=== PATIENT | male | born 1995 | race Caucasian/White ===

== ENCOUNTER 2021-11-10 18:33 | Emergency (ER) | payer OTHER, SELFPAY ==
[2021-11-10 19:19] VITALS: BP 149/85; PULSE 77; RESP 16; TEMP 36.8; O2SAT 98; BMI 29.2
--- NOTE | 2021-11-10 20:11 | W.ED.DENTAL ---
HPI - Dental/Oral General: Chief complaint: Dental/Oral Stated complaint: Blister in mouth Time Seen by Provider: 11/10/21 20:10 History of Present Illness: Patient comes in today with complaints of swelling to the upper palate. Patient reports noticing it yesterday which has grown more today. Patient has tenderness to the teeth. Patient appears nontoxic. Patient appears in mild pain. MD Complaint: tooth pain Onset (ago): day(s) Associated symptoms: Denies fever(s) Review of Systems General: Reports: 10 or more systems reviewed and unremarkable except in HPI and below Const: Denies: fever(s) ENMT: Reports: other (Mouth pain) Card: Denies: chest pain Resp: Denies: dyspnea Musc: Reports: neck pain Neuro: Denies: headache(s) Physical Exam Const: COMMON NORMALS: alert HENMT: TEETH & GINGIVA: Yes gingiva abnormal diffusely erythematous, tender, receding and discolored Neck/C-Spine: COMMON NORMALS: full ROM Resp: COMMON NORMALS: normal respiratory effort and clear to auscultation bilaterally AUSCULTATION: clear to auscultation bilaterally Cardio: COMMON NORMALS: regular rate and regular rhythm RATE: regular rate RHYTHM: regular rhythm Extremity: COMMON NORMALS: full ROM Neuro: SENSORIUM/ORIENTATION: Yes alert Course Vital Signs: Vital signs: Vital Signs Temperature 98.3 F 11/10/21 19:19 Pulse Rate 77 11/10/21 19:19 Respiratory Rate 16 11/10/21 19:19 Blood Pressure 149/85 11/10/21 19:19 Pulse Oximetry 98 11/10/21 19:19 [facility] - Dental/Oral Medical Decision Making Patient comes in with dental pain and discomfort. Patient has a sore to the roof of his mouth that is swollen. On exam we note a fluctuant lesion to the roof of the mouth. Posterior pharynx is normal in appearance. Patient has diffuse gingival recession with discoloration of the gingival mucosa. Differential diagnosis includes gingival abscess, chronic periodontal disease, dental caries. No signs of serious illness. Patient does have severe gingival disease. We will start him on clindamycin and instruct good oral care and follow-up with the dentist. Patient reported understanding and agreed to plan. Discharge Plan Discharge Patient Disposition: Home Clinical Impression: Gingival abscess, Chronic periodontal disease Condition: Stable Prescriptions: New clindamycin HCl 150 mg capsule 450 mg PO Q8H 7 Days Qty: 63 0RF Discharge Orders: Discharge ED (Routine); Ordered 11/10/21 Ordered By: Arnulfo Carter Discharge Diet: Usual diet Discharge Activity: Increase activity as tolerated Patient Instructions: Periodontal Disease (DC) Activity Restrictions/Additional Instructions: Antibiotics as directed. Soft diet. Good oral care. Use Sensodyne toothpaste, and Listerine for good oral care. Drink plenty of water with antibiotics. Follow-up with dentist for definitive care. Coding Level of Care Code ED [facility] Specialist for Mary Anne Mckeon
[2021-11-10] MEDS: clindamycin 150 mg Capsule 450 MG PO (20:26)
== END 2021-11-10 20:28 | disposition home or self-care (01) ==
PROVIDERS: Emergency Provider Nurse Practitioner Family
DX: S00.522A Blister (nonthermal) of oral cavity, initial encounter (principal); K05.319 Chronic periodontitis, localized, unspecified severity; K05.5 Other periodontal diseases
CPT/HCPCS: 99283